=== PATIENT | female | born 1990 ===

== ENCOUNTER 2021-05-24 14:52 | Emergency (ER) | payer SELFPAY ==
[~2021-05-24] VITALS: Ht 154.9 cm; Wt 59.9 kg
[2021-05-24] MEDS ORDERED: PROAAER10 INH (15:06)
[2021-05-24] MEDS ORDERED: ALBU83IN NEB (15:06)
[2021-05-24 17:43] VITALS: BP 151/90
== END 2021-05-24 21:54 | disposition left against medical advice (07) ==
LOC: M ED 14:52
DX: Z53.29 Procedure and treatment not carried out because of patient's decision for other reasons (principal)